=== PATIENT | female | born 1985 | race Caucasian/White ===

== ENCOUNTER → 2019-04-16 | Outpatient (CLI) | payer OTHER ==
[~2019-04-16] MED LIST: APIX5TAB PO; ASPI325T17 PO; CHOL2000 PO; DIGO125T PO; FLEC100T PO; MAGN250T8 PO; METO25TA35 PO; OMNIPAQUE 350 MG/ML, 150 ML BOTTLE ONE
== END | disposition home or self-care (01) ==
LOC: CFH 11:06
PROVIDERS: ATTEND Internal Medicine Cardiovascular Disease
DX: I48.91 Unspecified atrial fibrillation (principal)
CPT/HCPCS: 71046; 75572; Q9967

== ENCOUNTER 2019-04-17 06:28 | Observation (INO) | payer OTHER ==
[2019-04-16 12:34] VITALS: BP 117/82
[2019-04-16 13:03] LABS: BASOPHILS # (AUTO) 0.03 x10^3/uL (0-0.1); BASOPHILS % (AUTO) 0 % (0-1); EOSINOPHILS # (AUTO) 0.14 x10^3/uL (0-0.4); EOSINOPHILS % (AUTO) 2 % (1-7); LYMPHOCYTES # (AUTO) 2.01 x10^3/uL (1-3.4); LYMPHOCYTES % (AUTO) 27 % (22-44); MD NO; MEAN CORPUSCULAR HEMOGLOBIN 30.8 pg (27.0-34.8); MEAN CORPUSCULAR HGB CONC 33.7 g/dL (32.4-35.8); MEAN CORPUSCULAR VOLUME 91.6 fL (80-100); MEAN PLATELET VOLUME 7.2 fL (7.4-10.4); MONOCYTES # (AUTO) 0.43 x10^3/uL (0.2-0.8); MONOCYTES % (AUTO) 6 % (2-9); NEUTROPHILS # (AUTO) 4.86 x10^3/uL (1.8-6.8); NEUTROPHILS % (AUTO) 65 % (42-75); PLATELET COUNT 343 x10^3/uL (130-400); RED BLOOD COUNT 4.83 x10^6/uL (3.82-5.3); RED CELL DISTRIBUTION WIDTH 12.8 % (9.6-15.2)
[2019-04-16 13:11] LABS: ALANINE AMINOTRANSFERASE 19 U/L (12-78); ALBUMIN 4.1 g/dL (3.4-5.0); ANION GAP 4 mmol/L (5-15); CALCIUM 9.1 mg/dL (8.5-10.1); CHLORIDE 107 mmol/L (98-107); CREATININE 0.82 mg/dL (0.55-1.02)
[2019-04-16 13:15] LABS: ALKALINE PHOSPHATASE 72 U/L (45-117); BILIRUBIN,TOTAL 0.4 mg/dL (0.2-1.0); TOTAL PROTEIN 7.2 g/dL (6.4-8.2)
[~2019-04-17] VITALS: Ht 172.7 cm; Wt 95.4 kg
[~2019-04-17 06:28] MED LIST changes: -APIX5TAB PO; -OMNIPAQUE 350 MG/ML, 150 ML BOTTLE ONE
[2019-04-17] MEDS ORDERED: SODIUM CHLORIDE 0.9% 1,000 ML IV SCH (06:55)
[2019-04-17] MEDS ORDERED: FENTANYL PF 250 MCG/5ML ONE (07:17)
[2019-04-17] MEDS ORDERED: MIDAZOLAM 1 MG/ML, 2ML ONE (07:17)
[2019-04-17] MEDS ORDERED: PROPOFOL 50 ML ONE (07:17)
[2019-04-17] MEDS ORDERED: LIDOCAINE 2%, 20ML ONE (07:54)
[2019-04-17] MEDS ORDERED: ISOPROTERENOL 0.2MG/ML, 5ML ONE (10:08)
[2019-04-17] MEDS ORDERED: MEPERIDINE/PF 25MG/0.5ML IVPush PRN (11:00)
[2019-04-17] MEDS ORDERED: DIPHENHYDRAMINE 50 MG/ML, 1ML IVPush PRN (11:00)
[2019-04-17] MEDS ORDERED: OXYcodone 5 MG/5 ML ORAL.SOL UDC PO PRN (11:00)
[2019-04-17] MEDS ORDERED: MORPHINE SULFATE 4 MG/ML, 1ML IVPush PRN (11:00)
[2019-04-17] MEDS ORDERED: PROMETHAZINE 25 MG/ML, 1ML IV PRN (11:00)
[2019-04-17] MEDS ORDERED: EPHEDRINE 50 MG/ML, 1ML IVPush PRN (11:00)
[2019-04-17] MEDS ORDERED: DIAZEPAM 5 MG/ML, 2ML IVPush PRN (11:00)
[2019-04-17] MEDS ORDERED: ACETAMINOPHEN 325 MG TABLET PO PRN (11:00)
[2019-04-17] MEDS ORDERED: MIDAZOLAM 1 MG/ML, 2ML IV PRN (11:00)
[2019-04-17] MEDS ORDERED: EPHEDRINE 50 MG/ML, 1ML IM PRN (11:00)
[2019-04-17] MEDS ORDERED: ONDANSETRON 2MG/ML, 2ML IV PRN (11:00)
[2019-04-17] MEDS ORDERED: ONDANSETRON ODT 8 MG PO PRN (11:00)
[2019-04-17] MEDS ORDERED: APIXABAN 5 MG TABLET ONE (11:45)
[2019-04-17] MEDS ORDERED: METOPROLOL TARTRATE 25 MG TABLET PO PRN (12:00)
[2019-04-17] MEDS: APIXABAN 5 MG TABLET PO SCH ×2 (12:00→19:54)
[2019-04-17] MEDS ORDERED: ROCURONIUM 10MG/ML,5ML ONE (12:22)
[2019-04-17] MEDS ORDERED: DEXAMETHASONE 4 MG/ML, 1ML ONE (12:22)
[2019-04-17] MEDS ORDERED: SUCCINYLCHOLINE 20 MG/ML, 10ML ONE (12:22)
[2019-04-17] MEDS ORDERED: ONDANSETRON 2MG/ML, 2ML ONE (12:22)
[2019-04-17] MEDS ORDERED: PHENYLEPHRINE 10 MG/ML ONE (12:22)
[2019-04-17] MEDS ORDERED: KETOROLAC 30 MG/1 ML ONE (13:03)
[2019-04-17] MEDS: FENTANYL PF 100 MCG/2ML IV PRN ×2 (13:10→13:30)
[2019-04-17] MEDS ORDERED: FENTANYL PF 100 MCG/2ML ONE (13:12)
[2019-04-17] MEDS ORDERED: KETOROLAC 30 MG/1 ML IVPush ONE ×2 (13:30→14:30)
[2019-04-17 14:00] VITALS: BP 114/81
[2019-04-17] MEDS: ACETAMINOPHEN 325 MG TABLET PO PRN ×2 (15:18→22:14)
[2019-04-17 15:27] VITALS: BP 110/70
[2019-04-17 16:00] VITALS: BP 100/68
[2019-04-17] MEDS ORDERED: morphine SULFATE 10 MG/ML, 1ML IVPush PRN (18:00)
[2019-04-17] MEDS ORDERED: ONDANSETRON 2MG/ML, 2ML IVPush PRN (19:30)
[2019-04-17] MEDS: SODIUM CHLORIDE 0.9% 1,000 ML IV SCH (19:55)
[2019-04-17] MEDS: FLECAINIDE 100MG TABLET PO SCH (19:55)
[2019-04-17 20:40] VITALS: BP 95/59
[2019-04-18] MEDS: SODIUM CHLORIDE 0.9% 1,000 ML IV SCH (03:57)
[2019-04-18 04:05] VITALS: BP 96/54
[2019-04-18] MEDS ORDERED: SODIUM CHLORIDE 0.9%, 250ML IVBOLUS ONE (07:00)
[2019-04-18 07:38] VITALS: BP 95/68
[2019-04-18 07:39] VITALS: BP 102/70
[2019-04-18] MEDS ORDERED: CHOLECALCIFEROL 1,000 UNIT TABLET PO SCH (09:00)
[2019-04-18] MEDS: ACETAMINOPHEN 325 MG TABLET PO PRN (09:03)
[2019-04-18] MEDS: APIXABAN 5 MG TABLET PO SCH (09:03)
[2019-04-18] MEDS: FLECAINIDE 100MG TABLET PO SCH (10:09)
[2019-04-18] MEDS ORDERED: IBUPROFEN 200 MG TABLET PO PRN (11:30)
[2019-04-18 12:38] VITALS: BP 102/72
[2019-04-18] MEDS ORDERED: APIX5TAB PO (13:12)
== END 2019-04-18 15:00 | disposition home or self-care (01) ==
LOC: CACL 06:28 → ORIP 11:59 → 5SO 13:51 → DCLOUNGE 04-18 14:50
PROVIDERS: ADMIT Internal Medicine Cardiovascular Disease; ATTEND Internal Medicine Cardiovascular Disease
DX: I48.91 Unspecified atrial fibrillation (principal); I48.92 Unspecified atrial flutter; I10 Essential (primary) hypertension; Z79.899 Other long term (current) drug therapy; Z88.6 Allergy status to analgesic agent; Z88.8 Allergy status to other drugs, medicaments and biological substances
CPT/HCPCS: 36415; 70450; 80053; 84703; 85025; 85347; 93306; 93312; 93321; 93325; 93613; 93623; 93655; 93656; 93657; 93662; 96361; 96374; 96375; C1730; C1731; C1732; C1759; C1766; C1893; C1894; G0378; J0330; J1100; J1885; J2250; J2370; J2405; J2704; J3010; J3490; J7030

== ENCOUNTER → 2019-04-24 | Outpatient (CLI) | payer OTHER ==
[~2019-04-24] MED LIST changes: +APIX5TAB PO
== END | disposition home or self-care (01) ==
LOC: CVU 10:18
PROVIDERS: ATTEND Nurse Practitioner Family
DX: I31.3 Pericardial effusion (noninflammatory) (principal)
CPT/HCPCS: 93308; 93321; 93325

== ENCOUNTER 2019-05-17 13:13 | Outpatient (CLI) | payer OTHER | END 2019-05-17 23:59 | disposition home or self-care (01) | LOC: CFH 13:13 | PROVIDERS: ATTEND Nurse Practitioner Family | DX: I48.91 Unspecified atrial fibrillation (principal) | CPT/HCPCS: 78452; 93017; A9502 ==